=== PATIENT | female | born 1990 | race Caucasian/White ===

== ENCOUNTER 2022-02-26 19:45 | Emergency (ER) | payer OTHER ==
[~2022-02-26] VITALS: Ht 160 cm; Wt 87.5 kg
[2022-02-26] MEDS ORDERED: SINGULAIR10 MG PO (20:07)
[2022-02-26] MEDS ORDERED: SYNTHROID75 MCG PO (20:07)
[2022-02-26] MEDS ORDERED: ADDERALL XR 2020 MG PO (20:07)
[2022-02-26] MEDS ORDERED: ESCITALOPRAM OX10 MG PO (20:07)
[2022-02-26] MEDS ORDERED: VICTOZA 3-0.6 MG/0.1 SQ (20:08)
[2022-02-26] MEDS ORDERED: MEDROLPACK PO (23:45)
== END 2022-02-27 01:57 | disposition home or self-care (01) ==
LOC: ER 19:45
DX: U07.1 COVID-19 (principal); R05.9 Cough, unspecified